=== PATIENT | female | born 2000 | race American Indian/Alaskan Native ===

== ENCOUNTER 2021-11-14 23:31 | Emergency (ER) | payer SELFPAY ==
[2021-11-15] MEDS ORDERED: predniSONE 50 MG TAB PO STA (02:34)
[2021-11-15] MEDS ORDERED: ALBUTEROL 2.5 MG/3 ML NEBU IH ONE (02:34)
[2021-11-15 04:22] VITALS: BP 124/86
== END 2021-11-15 04:34 | disposition home or self-care (01) ==
LOC: ED 23:31
DX: R06.02 Shortness of breath (principal); Z53.21 Procedure and treatment not carried out due to patient leaving prior to being seen by health care provider
CPT/HCPCS: 94640; J7512; 94644; 99282